=== PATIENT | female | born 1950 | race Hispanic/Latino ===

== ENCOUNTER → 2019-08-18 | Outpatient (CLI) | payer MEDICARE ==
[~2019-08-18] MED LIST: REGADENOSON 0.4 MG/5 ML SYR IV ONE
--- NOTE | 2019-08-19 18:56 | Myoview Stress Test ---
DATE OF STUDY: 08/18/2019 09:18:00 Stress Test - Treadmill ONLY STRESS SUMMARY: The patient underwent pharmacologic stress testing with regadenoson under the usual protocol. Baseline heart rate was 73 beats per minute and increased to 105 beats per minute. Resting blood pressure was 134/76 and remained stable at blood pressure of 136/72. The patient elicited no cardiac symptoms throughout the stress protocol. Her baseline 12-lead electrocardiogram showed normal sinus rhythm. There was no evidence of arrhythmias or ST changes throughout the stress protocol. MYOCARDIAL PERFUSION IMAGES: The patient received 10.9 mCi of technetium-99m tetrofosmin at rest and 32.9 mCi at stress. Both sets of images were normal. Ejection fraction greater than 70%. CONCLUSIONS: 1. Normal clinical, hemodynamic, electrocardiographic Lexiscan stress test. 2. Normal myocardial perfusion imaging. 3. Normal left ventricular systolic function with an estimated ejection fraction of 70%. DO SOPHIE Hess/LAURENTL /[id number]
== END ==
LOC: NM 08:57
PROVIDERS: ATTEND Internal Medicine
DX: R07.9 Chest pain, unspecified (principal); E78.5 Hyperlipidemia, unspecified
CPT/HCPCS: 78452; 93017; 93306; A9502; J2785

== ENCOUNTER 2020-03-28 07:23 | Emergency (ER) | payer MEDICARE, OTHER ==
[~2020-03-28] VITALS: Ht 157.5 cm; Wt 65.8 kg
--- NOTE | 2020-03-28 07:45 | Emergency Department Note ---
History of Present Illnes History of Present Illness Chief Complaint: General Medicine Complaints History of Present Illness This is a 69 year old female Chief Complaint Comment PATIENT IN FROM HOME HOME WITH COMPLAINTS OF DIZZINESS, WEAKNESS, AND NAUSEA STARTING ABOUT 0430 AFTER GETTING UP TO GO TO THE RESTROOM, PATIENT RATES HEADACHE 2/10. Historian: Patient, Family Member Arrival Mode: Car History limited by: language barrier [employer] Required: Yes Onset (how long ago): hour(s) (3) Location: Head Quality: Dizzy Radiation: Reports non-radiation Severity: mild Onset quality: gradual Duration (how long): hour(s) (3) Timing of current episode: constant Progression: unchanged Chronicity: new Context: Denies recent illness, Denies recent surgery Relieving factors: none Exacerbating factors: none Associated symptoms: Reports weakness (Generalized) Treatments prior to arrival: none Past Medical/Family History Physician Review I have reviewed the patient's past medical and family history. Any updates have been documented here. Past Medical History Recent Fever: No Clinical Suspicion of Infectio: No New/Unexplained Change in Ment: No Past Medical History: Hypertension, Diabetes, Hypothyroidism, Hyperlipedemia Past Surgical History: None Review of Systems Review of Systems Constitutional: Reports as per HPI EENTM: Reports no symptoms Cardiovascular: Reports no symptoms Respiratory: Reports no symptoms Gastrointestinal: Reports no symptoms Genitourinary: Reports no symptoms Musculoskeletal: Reports no symptoms Integumentary: Reports no symptoms Neurological: Reports as per HPI, Reports weakness (Generalized), Reports other (Dizziness) Psychological: Reports no symptoms Endocrine: Reports no symptoms Hematological/Lymphatic: Reports no symptoms Physical Exam Related Data Allergies: Coded Allergies: No Known Allergies (Unverified , 03/28/20) Triage Vital Signs Vital Signs Date Time Temp Pulse Resp B/P (MAP) Pulse Ox O2 Delivery O2 Flow Rate FiO2 03/28/20 07:27 98.2 81 16 184/92 100 Room Air Vital signs reviewed: Yes Physical Exam CONSTITUTIONAL Constitutional: Present well-developed, Present well-nourished HENT HENT: Present normocephalic, Present atraumatic, Present oropharynx clear/moist, Present nose normal HENT L/R: Present left ext ear normal, Present right ext ear normal EYES Eyes: Reports PERRL, Reports conjunctivae normal NECK Neck: Present ROM normal PULMONARY Pulmonary: Present effort normal, Present breath sounds normal CARDIOVASCULAR Cardiovascular: Present regular rhythm, Present heart sounds normal, Present capillary refill normal, Present normal rate GASTROINTESTINAL Abdominal: Present soft, Present nontender, Present bowel sounds normal GENITOURINARY Genitourinary: Present exam deferred SKIN Skin: Present warm, Present dry MUSCULOSKELETAL Musculoskeletal: Present ROM normal NEUROLOGICAL Neurological: Present alert, Present oriented x 3, Present no gross motor or sensory deficits PSYCHOLOGICAL Psychological: Present mood/affect normal, Present judgement normal Procedures 12 Lead ECG Interpretation ECG Interpretation : [employer]: Interpreted by ED physician Date: Mar 28, 2020 Rhythm: sinus rhythm Rate: normal BPM: 76 QRS axis: normal ST segments normal: Yes T waves normal: Yes Clinical Impression: normal ECG Assessment & Plan Medical Decision Making MDM 69-year-old female presents for dizziness and weakness. Weakness is whole body. made worse with movement and some head positions. She has never had this before. Initial differential includes stroke versus BPPV versus dehydration versus thyroid abnormality among others. Workup included head CT, labs are largely unremarkable. She is given 500 mL fluid meclizine with moderate resolution of symptoms. Diagnosis favors peripheral cause of vertigo. Doubt emergent process at this time. I discussed results patient as well as expected disease time course and management. They will follow up with their primary care provider or return to the emergency department for new or worsening symptoms. Patient's appropriate for discharge. Part of this note was dictated with Concepcion and is subject to recognition errors. Reassessment Reassessment time: 08:55 Reassessment Well appearing, NAD Assessment & Plan Final Impression: (1) Dizziness Depart Disposition: HOME, SELF-CARE Last Vital Signs Date Time Temp Pulse Resp B/P (MAP) Pulse Ox O2 Delivery O2 Flow Rate FiO2 03/28/20 07:27 98.2 81 16 184/92 100 Room Air Home Meds Active Scripts Meclizine Hcl (MECLIZINE HCL) 12.5 Mg Tablet, 12.5 MG PO DAILY PRN for prn, #10 TAB Prov:BRIAN OLIVER MD 03/28/20 BRIAN OLIVER MD Mar 28, 2020 07:45
[2020-03-28] MEDS ORDERED: SODIUM CHLORIDE 0.9% 500ML 500 ML IV STA (07:50)
[2020-03-28 08:03] LABS: BASOPHILS % 0.4 % (0.0-1.0); EOSINOPHILS # (AUTO) 0.1 (0.0-0.4); EOSINOPHILS % 0.9 % (0.0-6.0); HEMATOCRIT 39.6 % (34.2-44.1); HEMOGLOBIN 13.4 g/dL (12.0-16.0); LYMPHOCYTES # (AUTO) 1.3 (1.0-3.2); LYMPHOCYTES % 18.7 % (18.0-39.1); MEAN CORPUSCULAR HEMOGLOBIN 29.3 pg (28-32); MEAN CORPUSCULAR HGB CONC 33.8 g/dL (31-35); MEAN CORPUSCULAR VOLUME 86.7 fL (81-99); MONOCYTES # (AUTO) 0.3 (0.2-0.8); MONOCYTES % 5.1 % (4.4-11.3); NEUTROPHILS % 74.5 % (38.7-80.0); PLATELET COUNT 185 x10e3/uL (140-360); RED BLOOD COUNT 4.57 x10e6/uL (3.6-5.1); RED CELL DISTRIBUTION WIDTH 12.2 % (11.7-14.4)
[2020-03-28 08:14] LABS: INR 0.86; PROTHROMBIN TIME 12.2 seconds (11.9-14.5)
[2020-03-28 08:22] LABS: ALANINE AMINOTRANSFERASE 20 IU/L (0-55); ALBUMIN 4.9 g/dL (3.5-5.0); ALBUMIN/GLOBULIN RATIO 1.6 (0.8-2.0); ALKALINE PHOSPHATASE 108 IU/L (40-150); ANION GAP 13.2 mmol/L (8-16); BLOOD UREA NITROGEN 11 mg/dL (7-26); BUN/CREATININE RATIO 13 (6-25); CALCIUM 10.2 mg/dL (8.4-10.2); CARBON DIOXIDE 27 mmol/L (22-29); CHLORIDE 101 mmol/L (98-107); CREATININE, SERUM 0.87 mg/dL (0.57-1.11); EST GLOMERULAR FILTRATION RATE > 60 ML/MIN (60-); GLUCOSE 171 mg/dL (74-118); POTASSIUM 4.2 mmol/L (3.5-5.1); SODIUM 137 mmol/L (136-145)
--- OUTSIDE RECORDS SUMMARY | 2020-03-28 08:23 | XMS REPORT | Continuity of Care Document ---
Author Author [facility] t Organization [facility] Address [address] [place] [address] Phone Unavailable Care Team Providers Care Manuscripts Curator Name Role Phone Dany KELLER Unavailable Problems Condition Name Condition Details Condition Category Status Onset Date Resolution Date Last Treatment Date Treating Clinician Comments Source Onychocryptosis Onychocryptosis Disease Active 2016-05-13 00:00:00 [facility] Onychogryphosis Onychogryphosis Disease Active 2016-05-13 00:00:00 [facility] Osteopenia Osteopenia Disease Active 2012-03-04 00:00:00 [facility] Vaginitis, atrophic Vaginitis, atrophic Disease Active 2011-10-23 00:00 :00 [facility] HTN (hypertension) HTN (hypertension) Disease Active 2009-04-11 00:00:0 0 [facility] Diabetes mellitus type II Diabetes mellitus type II Disease Ac tive 2009-03-24 00:00:00 [facility] GERD (gastroesophageal reflux disease) GERD (gastroesophagea l reflux disease) Disease Active 2008-09-16 00:00:00 [facility] Hyperlipidemia Hyperlipidemia Disease Active 2007-09-24 00:00:00 [facility] Snores Snores Disease Active 2007-09-24 00:00:00 [facility] Hypothyroid Hypothyroid Disease Active 2007-03-19 00:00:00 [facility] Anxiety disorder Anxiety disorder Disease Active 2007-03-19 00:00:00 [facility] Family history of breast cancer Family history of breast cancer Dis ease Active 2007-03-19 00:00:00 [facility] [facility] Overweight(278.02) Overweight(278.02) Disease Active [facility] Hot flashes Hot flashes Disease Active Overview: OTC estroven trial 09/24/07 [facility] Diverticulosis Diverticulosis Disease Active Overview: BE=02/23/08 [facility] Halitosis Halitosis Disease Active Overview: per Pt request ENT= [facility] Vaginal atrophy Vaginal atrophy Disease Active [facility] Allergies, Adverse Reactions, Alerts This patient has no known allergies or adverse reactions. Family History Family Member Diagnosis Comments Start Date Stop Date Source Maternal grandmother Arthritis [facility] Natural mother Hypertension [place] Natasha ealtnatasha Natural sister [facility] Social History Social Habit Start Date Stop Date Quantity Comments Source Sex Assigned At [facility] Alcohol intake 2016-05-08 00:00:00 2016-05-08 00:00:00 Current drinker of alcohol (finding) [facility] Alcohol Comment 2009-08-16 00:00:00 2009-08-16 00:00:00 4 beers on 1-2 times a month [facility] Smoking Status Start Date Stop Date Source Never smoker [facility] Medications Ordered Medication Name Filled Medication Name Start Date Stop Da te Current Medication? Ordering Clinician Indication Dosage Frequency Signature (SIG) Comments Components Source levothyroxine (SYNTHROID) 75 mcg tablet 2016-05-15 00:00:00 Yes Acquired hypothyroidism 75ug QD Take 1 tablet by mouth daily. [facility] metFORMIN (GLUCOPHAGE) 500 mg tablet 2016-05-15 00:00:00 Yes Uncontrolled type 2 diabetes mellitus without complication, without long-term current use of insulin 500mg QD Take 1 tablet by mouth daily (with breakfast). [facility] ergocalciferol (VITAMIN D2) 50,000 unit capsule 2016-01-22 0 0:00:00 Yes Vitamin D deficiency 86403C Take 1 capsule by mouth weekly. [facility] atorvastatin (LIPITOR) 40 mg tablet 2016-01-22 00:00:00 Yes Mixed hyperlipidemia 40mg Take 1 tablet by mouth at bedtime nightly. [facility] lisinopril (ZESTRIL) 2.5 mg tablet 2016-01-22 00:00:00 Yes Microalbuminuric diabetic nephropathy 2.5mg QD Take 1 tablet by mouth daily. [facility] fluticasone (FLONASE) 50 mcg/actuation nasal spray 2014-11 00:00:00 Yes Viral illness 1{spray} QD Use 1 [place] in each nostril daily. [facility] cetirizine (ZYRTEC) 10 mg tablet 2014-11-17 00:00:00 Yes Viral illness 10mg QD Take 1 tablet by mouth daily. [facility] lancets 28 gauge 2014-11-01 00:00:00 Yes Type II or unspecified type diabetes mellitus without mention of complication, not stated as uncontrolled Check sugar fasting and 2 hours after dinner 2-3 times a week. [facility] blood glucose test strips 2014-10-31 00:00:00 Yes Type II or unspecified type diabetes mellitus without mention of complication, not stated as uncontrolled Check sugar fasting and 2 hours after dinner 2-3 times a week. [facility] PROVENTIL HFA 90 mcg/actuation inhaler 2014-05-24 00:00:00 Yes Environmental allergies 2{puff} Inhale 2 Puffs b y mouth 4 times daily as needed for Wheezing. [facility] cetirizine (ZYRTEC) 10 mg tablet 2014-05-24 00:00:00 Yes Environmental allergies 10mg QD Take 1 tablet by mouth daily. [facility] glucose blood test strips (PRECISION XTRA) strip 2012-03-04 00:00:00 Yes Elevated fasting glucose Use as directed. [facility] 2012-03-04 00:00:00 Yes Diabetes mellitus type II 2X daily [facility] blood glucose meter 2011-10-07 00:00:00 Yes [place] fasting glucose Use as directed. [facility] ASPIRIN 81 MG TAB 2007-09-24 00:00:00 Yes Chest pain 1 TABLET DAILY [facility] Immunizations Ordered Immunization Name Filled Immunization Name Date Status Comments Source Influenza Vaccine 2016-05-08 00:00:00 Completed [facility] Influenza Vaccine 2009-05-01 00:00:00 Completed [facility] Td Tetanus, diphtheria Toxoids Vaccine 2007-09-24 00:00:00 Completed [facility] PPV 23 Pneumococcal Polysaccaride 2007-09-24 00:00:00 Comp leted [facility] Procedures This patient has no known procedures. Plan of Care Planned Activity Planned Date Details Comments Source Future Scheduled Test 2020-04-12 00:00:00 IMM Influenza Seas onal Apr to September (>/= 19 yrs) [code = IMM Influenza Seasonal Apr to September (>/= 19 yrs)] [facility] Scheduled Test 2017-05-09 00:00:00 Hemoglobin A1c patricio surement (procedure) [code = 49026844] [facility] Scheduled Test 2017-01-21 00:00:00 Breast Cancer Scrn (Yearly) [code = Breast Cancer Scrn (Yearly)] [facility] Scheduled Test 2016-12-12 00:00:00 Screening for baljit gnstacey neoplasm of colon (procedure) [code = 607158194] [facility] Scheduled Test 2016-12-10 00:00:00 IMM Pneumococcal A ge 65 and Up [code = IMM Pneumococcal Age 65 and Up] [facility] Scheduled Test 2016-08-21 00:00:00 DM Retinal Exam (Y early) [code = DM Retinal Exam (Yearly)] [facility] Scheduled Test 1969-[birth year]-10 00:00:00 DM Foot Exam (Year ly) [code = DM Foot Exam (Yearly)] [facility] Encounters Start Date/Time End Date/Time Encounter Type Admission Type [facility] Care Department Encounter ID Source 2019-07-29 14:03:00 2019-07-29 14:03:00 Outpatient [facility] [address] [place] [address] 2016-05-15 11:01:10 2016-05-15 11:01:10 Outpatient [facility] [id number] [facility] 2016-05-15 08:41:08 2016-05-15 08:41:08 Outpatient [facility] [id number] [facility] 2016-05-13 12:46:44 2016-05-13 12:46:44 Outpatient [facility] [id number] [facility] 2016-05-09 07:48:37 2016-05-09 07:48:37 Outpatient [facility] [id number] [facility] 2016-05-08 09:19:14 2016-05-08 09:19:14 Outpatient [facility] [id number] [facility] Results Test Description Test Time Test Comments Results Result Comments Source Stress Test - Treadmill ONLY 2019-08-19 15:57:00 [place] [address] Patient Name : NBA DANIEL MR #: [id number] : 1950 Age/Sex: 68/F Adm Physician : YUSUF KELLER MD Admit Date : 08/18/19 Location : [place] Room/Bed : REPORT: Myoview Stress Test DATE OF STUDY: 08/18/2019 09:18:00 Stress Test - Treadmill ONLY STRESS SUMMARY: The patient underwent pharmacologic stress testing with regadenoson under the usual protocol. Baseline heart rate was 73 beats per minute and increased to 105 beats per minute. Resting blood pressure was 134/76 and remained stable at blood pressure of 136/72. The patient elicited no cardiac symptoms throughout the stress protocol. Her baseline 12-lead electrocardiogram showed normal sinus rhythm. There was no evidence of arrhythmias or ST changes throughout the stress protocol. MYOCARDIAL PERFUSION IMAGES: The patient received 10.9 mCi of technetium-99m tetrofosmin at rest and 32.9 mCi at stress. Both sets of images were normal. Ejection fraction greater than 70%. CONCLUSIONS: 1. Normal clinical, hemody namic, electrocardiographic Lexiscan stress test. 2. Normal myocardial perfusion imaging. 3. Normal left ventricular systolic function with an estimated ejection fraction of 70%. _ DO SOPHIE Hess/MORTEZA /[id number] Signature Date Dictated By: DONOVAN HOLGUIN DO Transcribed By: MORTEZA on 08/19/19 <Electronically signed by DONOVAN HOLGUIN DO><<Signature on File>>09/06/19 1042 COPY TO:
--- OUTSIDE RECORDS SUMMARY | 2020-03-28 08:23 | XMS REPORT | Clinical Summary ---
Author Author [facility] Organization [facility] Address Unknown Phone Unavailable Care Team Providers Care Training Intern Name Role Phone PCP Unavailable Allergies No Known Allergies Medications End Date Status Medication Sig Dispensed Refills Start Date Active ASPIRIN 81 MG 1 TABLET 0 0 TABIndications: Chest DAILY 8 pain Active blood glucose Use as 1 Kit 0 meterIndications: directed. 2 Elevated fasting glucose Active glucose blood test strips Use as 3 Box 10 (PRECISION XTRA) directed. 2 stripIndications: Elevated fasting glucose Active LANCETSIndications: 2X daily 3 Box 12 Diabetes mellitus type II 2 Active PROVENTIL HFA 90 Inhale 2 20.1 g 1 mcg/actuation Puffs by 4 inhalerIndications: mouth 4 times Persistent dry cough, daily as Environmental allergies needed for Wheezing. Active cetirizine (ZYRTEC) 10 mg Take 1 tablet 90 tablet 1 tabletIndications: by mouth 4 Environmental allergies daily. Active lancets 28 Check sugar 1 Box 3 gaugeIndications: Type II fasting and 2 5 or unspecified type hours after diabetes mellitus without dinner 2-3 mention of complication, times a week. not stated as uncontrolled Active blood glucose test Check sugar 50 Each 3 01 stripsIndications: Type fasting and 2 5 II or unspecified type hours after diabetes mellitus without dinner 2-3 mention of complication, times a week. not stated as uncontrolled Active fluticasone (FLONASE) 50 Use 1 [place] 16 g 0 0 mcg/actuation nasal in each 5 sprayIndications: Viral nostril illness daily. Active cetirizine (ZYRTEC) 10 mg Take 1 tablet 30 tablet 0 tabletIndications: Viral by mouth 5 illness daily. Active ergocalciferol (VITAMIN Take 1 12 capsule 0 D2) 50,000 unit capsule by 6 capsuleIndications: mouth weekly. Vitamin D deficiency Active atorvastatin (LIPITOR) 40 Take 1 tablet 90 tablet 1 mg tabletIndications: by mouth at 6 Mixed hyperlipidemia bedtime nightly. Active lisinopril (ZESTRIL) 2.5 Take 1 tablet 90 tablet 1 mg tabletIndications: by mouth 6 Microalbuminuric diabetic daily. nephropathy Active levothyroxine (SYNTHROID) Take 1 tablet 90 tablet 1 75 mcg tabletIndications: by mouth 6 Acquired hypothyroidism daily. Active metFORMIN (GLUCOPHAGE) Take 1 tablet 90 tablet 1 1 500 mg tabletIndications: by mouth 6 Uncontrolled type 2 daily (with diabetes mellitus without breakfast). complication, without long-term current use of insulin Active Problems Problem Noted Date Onychocryptosis 05/13/2016 Onychogryphosis 05/13/2016 Osteopenia 03/04/2012 Vaginitis, atrophic 10/23/2011 HTN (hypertension) 04/11/2009 Diabetes mellitus type II 03/24/2009 GERD (gastroesophageal reflux disease) 09/16/2008 Hyperlipidemia 09/24/2007 Snores 09/24/2007 Hypothyroid 03/19/2007 Anxiety disorder 03/19/2007 Family history of breast cancer 03/19/2007 Overweight(278.02) Hot flashes Overview: OTC estroven trial 09/24/07 Diverticulosis Overview: BE=02/23/08 Halitosis Overview: per Pt request ENT= Vaginal atrophy Immunizations Name Administration Dates Next Due Influenza Vaccine 05/08/2016, 05/01/2009 PPV 23 Pneumococcal 09/24/2007 Polysaccaride Td Tetanus, diphtheria 09/24/2007 Toxoids Vaccine Family History Medical History Relation Name Comments Arthritis Maternal Grandmother Hypertension Mother NO DM, CAD, Cancer Sister AT AGE 45 YRS, [place] Relation Name Status Comments Father head trauma (Age 94) Maternal Grandmother Mother stroke (Age 84) Sister Social History Date Tobacco Use Types Packs/Day Years Used Never Smoker Smokeless Tobacco: Never Used Tobacco Cessation: Counseling Given: No Drinks/Week oz/Week Comments Alcohol Use 4 beers on 1-2 times a month Yes Sex Assigned at Date Recorded Not on file Industry Job Start Date Occupation Not on file Not on file Not on file Travel End Travel History Travel Start No recent travel history available. Last Filed Vital Signs Not on file Plan of Treatment Health Maintenance Due Date Last Done Comments DM Foot Exam (Yearly) 12/10/1969 DM Retinal Exam (Yearly) 08/21/2016 08/21/2015, 08/21/2015, 02/08/2015, Additional history exists IMM Pneumococcal Age 65 12/10/2016 and Up Colorectal Cancer Scrn 12/12/2016 12/13/2015, Annual (FIT/FOBT) Age 50 04/01/2007, to 75 03/31/2007, Additional history exists Breast Cancer Scrn 01/21/2017 01/22/2016, (Yearly) 01/22/2016, 02/02/2014, Additional history exists DM HGBA1C (Yearly) 05/09/2017 05/09/2016, 12/13/2015, 01/24/2015, Additional history exists IMM Influenza Seasonal 04/12/2020 05/08/2016, Apr to September (>/= 19 yrs) 05/01/2009 Results Not on fileafter 03/28/2019
[2020-03-28 08:28] LABS: BILIRUBIN,URINE NEGATIVE (NEGATIVE); CLARITY,URINE CLEAR (CLEAR); COLOR,URINE YELLOW (YELLOW); KETONES,URINE NEGATIVE (NEGATIVE); LEUKOCYTE ESTERASE ,URINE NEGATIVE (NEGATIVE); NITRITE,URINE NEGATIVE (NEGATIVE); PROTEIN,URINE DIPSTICK NEGATIVE (NEGATIVE); URINE UROBILINOGEN 0.2 mg/dL (0.2 - 1)
--- NOTE | 2020-03-28 08:33 | Diagnostic Imaging Report ---
EXAMINATION: Head CT HISTORY: 69-year-old female with right hand numbness, weakness and dizziness as well as headache COMPARISON: None. TECHNIQUE: Helical axial images of the head were obtained. Dose modulation, iterative reconstruction, and/or weight based adjustment of the mA/kV was utilized to reduce the radiation dose to as low as reasonably achievable. FINDINGS: Parenchyma: 1. Few scattered white matter hypodensities, most likely nonspecific chronic microvascular ischemic changes. 2. No mass or hemorrhage. No CT evidence of acute territorial vascular insult. Extra-axial spaces:No abnormal density. No extra-axial fluid collections Brain volume: Normal for age. Ventricles: No hydrocephalus or displacement. Arteries: No density suggestive of thrombus. Dural sinuses: No abnormal density. Foramen magnum: No mass, Chiari malformation, or basilar invagination. Sella: No obvious mass. Paranasal/mastoid sinuses: Imaged portions unremarkable. Skull/Scalp: No lytic or blastic lesions. No fractures. IMPRESSION: 1. No acute intracranial hemorrhage or CT evidence of acute cortical infarcts. 2. Mild nonspecific chronic microvascular ischemic changes. Signed by: Dr. Heidi Perez M.D. on 03/28/2020 8:29 AM
[2020-03-28 08:38] LABS: BACTERIA,URINE FEW /HPF; EPITHELIAL CELLS,URINE FEW /LPF; RBC,URINE 0-5 /HPF (0-5); WBC,URINE (MAN) 0-5 /HPF (0-5)
[2020-03-28] MEDS ORDERED: MECLIZINE HCL 12.5 MG TAB PO ONE (09:00)
[2020-03-28] MEDS ORDERED: MECLIZINE HCL12.5 MG PO (09:54)
== END 2020-03-28 10:45 | disposition home or self-care (01) ==
LOC: ER 07:50
DX: R42 Dizziness and giddiness (principal); I10 Essential (primary) hypertension; E11.9 Type 2 diabetes mellitus without complications; E78.5 Hyperlipidemia, unspecified; E03.9 Hypothyroidism, unspecified
CPT/HCPCS: 36415; 70450; 80053; 81001; 84443; 84484; 85025; 85610; 93005; 99284; J7040; J8597

== ENCOUNTER 2020-08-24 15:06 | Emergency (ER) | payer MEDICARE, OTHER ==
[~2020-08-24] VITALS: Ht 157.5 cm; Wt 65.8 kg
[~2020-08-24 15:06] MED LIST changes: +MECLIZINE HCL12.5 MG PO; -REGADENOSON 0.4 MG/5 ML SYR IV ONE
[2020-08-24] MEDS: SODIUM CHLORIDE 0.9% 1000ML 1,000 ML IV STA (15:22)
[2020-08-24] MEDS: MECLIZINE HCL 12.5 MG TAB PO ONE (15:22)
[2020-08-24] MEDS: ONDANSETRON HCL INJ 2MG/ML 2ML 2 MG/ML VIAL IV NR (15:26)
[2020-08-24 15:39] LABS: BASOPHILS % 0.3 % (0.0-1.0); EOSINOPHILS # (AUTO) 0.1 (0.0-0.4); EOSINOPHILS % 1.7 % (0.0-6.0); HEMATOCRIT 38.6 % (34.2-44.1); HEMOGLOBIN 13.1 g/dL (12.0-16.0); LYMPHOCYTES # (AUTO) 1.8 (1.0-3.2); LYMPHOCYTES % 25.1 % (18.0-39.1); MEAN CORPUSCULAR HEMOGLOBIN 29.4 pg (28-32); MEAN CORPUSCULAR HGB CONC 33.9 g/dL (31-35); MEAN CORPUSCULAR VOLUME 86.7 fL (81-99); MONOCYTES # (AUTO) 0.4 (0.2-0.8); MONOCYTES % 5.7 % (4.4-11.3); NEUTROPHILS # (AUTO) 4.7 (2.1-6.9); NEUTROPHILS % 66.9 % (38.7-80.0); PLATELET COUNT 184 x10e3/uL (140-360); RED BLOOD COUNT 4.45 x10e6/uL (3.6-5.1); RED CELL DISTRIBUTION WIDTH 13.3 % (11.7-14.4)
[2020-08-24 15:57] LABS: ALANINE AMINOTRANSFERASE 20 IU/L (0-55); ALBUMIN 4.6 g/dL (3.5-5.0); ALBUMIN/GLOBULIN RATIO 1.4 (0.8-2.0); ALKALINE PHOSPHATASE 104 IU/L (40-150); ANION GAP 15.9 mmol/L (8-16); BLOOD UREA NITROGEN 12 mg/dL (7-26); BUN/CREATININE RATIO 14 (6-25); CALCIUM 10.3 mg/dL (8.4-10.2); CARBON DIOXIDE 28 mmol/L (22-29); CHLORIDE 100 mmol/L (98-107); CREATINE KINASE 29 IU/L (29-168); CREATININE, SERUM 0.83 mg/dL (0.57-1.11); EST GLOMERULAR FILTRATION RATE > 60 ML/MIN (60-); GLUCOSE 153 mg/dL (74-118); POTASSIUM 3.9 mmol/L (3.5-5.1); SODIUM 140 mmol/L (136-145)
[2020-08-24] MEDS: DIAZEPAM 5 MG TAB PO ONE (16:27)
[2020-08-24] MEDS ORDERED: DIAZEPAM 5 MG TAB ONE (16:32)
[2020-08-24] MEDS ORDERED: MECLIZINE HCL12.5 MG PO (17:48)
[2020-08-24 18:04] VITALS: BP 144/74
== END 2020-08-24 18:10 | disposition home or self-care (01) ==
LOC: ER 16:20
DX: R42 Dizziness and giddiness (principal); R11.2 Nausea with vomiting, unspecified; E11.9 Type 2 diabetes mellitus without complications; E03.9 Hypothyroidism, unspecified
CPT/HCPCS: 36415; 70450; 80053; 82550; 82553; 84484; 85025; 99283; J2405; J7030; J8597